=== PATIENT | female | born 1960 | race African-American/Black ===

== ENCOUNTER 2018-02-22 09:39 | Outpatient (CLI) | payer OTHER | END 2018-02-22 09:40 | disposition home or self-care (01) | LOC: BICCT 09:39 | PROVIDERS: ATTEND Internal Medicine Pulmonary Disease | DX: J84.2 Lymphoid interstitial pneumonia (principal); R91.8 Other nonspecific abnormal finding of lung field; J98.4 Other disorders of lung | CPT/HCPCS: 71250 ==